=== PATIENT | male | born 1960 | race Caucasian/White ===

== ENCOUNTER 2024-05-27 02:20 | Emergency (ER) | payer OTHER, SELFPAY ==
--- NOTE | ~2024-05-27 | XR_ITS ---
CLINICAL HISTORY: cough for one month 1 view chest x-ray. Comparison: None Findings: No consolidation, pneumothorax, or effusion. Heart size normal. Impression: 1. No acute cardiopulmonary process. No focal pulmonary consolidation. This document has been electronically signed by: John Hawkins MD on 05/27/2024 03:22:27
[2024-05-27 02:22] VITALS: BP 154/104; PULSE 65; RESP 20; TEMP 36.4; O2SAT 96; BMI 29.9
--- NOTE | 2024-05-27 02:27 | ECG_ITS ---
Test Reason : SOB Blood Pressure : */* mmHG Vent. Rate : 59 BPM Atrial Rate : 59 BPM P-R Int : 212 ms QRS Dur : 82 ms QT Int : 440 ms P-R-T Axes : -19 23 47 degrees QTcB Int : 435 ms Sinus bradycardia with 1st degree A-V block Septal infarct , age undetermined Abnormal ECG When compared with ECG of 01-Sep-2002 00:48, VT interval has increased Vent. rate has decreased by 46 bpm Septal infarct is now Present Referred By: Generic ED Physician Electronically Signed By: Lencho Xavier
[2024-05-27 02:42] LABS: MANUAL DIFF FLAG NO
[2024-05-27 02:44] LABS: Basophils Absolute Auto 0.1 X10*3/uL (0.0-0.2); Basophils Percent Auto 0.8 % (0-2); Eosinophils Absolute Auto 0.2 X10*3/uL (0.0-0.4); Hematocrit 40.1 % (42.0-52.0); Hemoglobin 14.3 g/dl (14.0-18.0); Imm Gran Abs Auto 0.02 X10*3/uL (0.00-0.03); Imm Gran Pct Auto 0.3 % (0.0-0.4); Lymphocytes Absolute Auto 1.7 X10*3/uL (1.2-4.9); Lymphocytes Percent Auto 25.6 % (20-40); Mean Corpuscular HGB Conc 35.7 g/dl (31.0-36.0); Mean Corpuscular Hemoglobin 29.4 pg (27.0-33.0); Mean Corpuscular Volume 82.3 fL (80.0-98.0); Mean Platelet Volume 11.7 fL (9.4-12.4); Monocytes Absolute Auto 0.5 X10*3/uL (0.1-1.2); Monocytes Percent Auto 7.5 % (2-11); Neutrophils Absolute Auto 4.2 x10*3/uL (2.0-8.3); Neutrophils Percent Auto 62.8 % (45-73); Platelet Count 189 X10*3/uL (160-400); Red Blood Count 4.87 X10*6/uL (4.60-5.80); Red Cell Distribution Width 12.3 % (11.0-16.0); White Blood Count 6.6 X10*3/uL (4.8-10.8)
[2024-05-27 02:58] LABS: Anion Gap 12 (12-20); Blood Urea Nitrogen 13 mg/dL (9-16); Carbon Dioxide 27 mmol/L (22-29); Chloride 102 mmol/L (96-108); Creatinine Clr Calc Pharmacy 105.9; Estimated Glomerular Filt Rate > 60; Glucose Random 290 mg/dL (60-115); Potassium 3.9 mmol/L (3.3-5.1); Sodium 137 mmol/L (135-145)
[2024-05-27 03:07] LABS: Troponin-I High Sensitivity < 2.7 ng/L (<3.5-35.0)
--- NOTE | 2024-05-27 03:08 | ED.GENADULT ---
HPI - General Adult General Chief complaint: General Medical Stated complaint: diff breathing Time Seen by Provider: 05/27/24 03:00 Source: patient Mode of arrival: ambulatory Limitations: no limitations History of Present Illness ED Provider: DR. Hicks HPI narrative: 64-year-old male came in for evaluation of shortness of breath, cough for the past month with exposure to a multiple family member in the family. Patient feels generalized weakness, shortness of breath, constant dizziness when he changes position from sitting to standing, persistent coughing with clear sputum. Only use edible marijuana, no history of cigarette smoking, no history of lung disease. Related Data Previous Rx's ?Medication ?Instructions ?Recorded guaifenesin 200 mg/5 mL oral liquid 200 mg (5 mL) PO Q4H PRN cough 05/27/24 #118 mL metformin 500 mg tablet 500 mg PO BID #30 tabs 05/27/24 Allergies Allergy/AdvReac Type Severity Reaction Status Date / Time No Known Allergies Allergy Verified 05/27/24 02:25 Review of Systems Review of Systems: All other systems are reviewed and are negative Constitutional: Reports as per HPI and Reports no additional constitutional complaints Eyes: Reports as per HPI and Reports no additional eye complaints Reports system reviewed and no additional complaints, except as documented Cardiovascular: Reports as per HPI and Reports no additional cardiovascular complaints Respiratory: Reports as per HPI and Reports no additional respiratory complaints Gastrointestinal: Reports as per HPI and Reports no additional gastrointestinal complaints Genitourinary: Reports no additional female genitourinary complaints Musculoskeletal: Reports no additional musculoskeletal complaints Skin/Breast: Reports system reviewed and no additional complaints, except as docu Psychiatric: Reports no additional psychiatric complaints Endocrine: Reports no additional endocrine complaints Hematologic/Lymphatic: Reports no additional hematologic/lymphatic complaints Allergic/Immunologic: Reports no additional allergic/immunologic complaints Reports system reviewed and no additional complaints, except as documented and Reports Abnormal speech present [facility] Social History Social History Advance Directives: No Advance Directives Information Provided: Yes Do you have a plan to hurt others: No Plan Physical Exam ED Vital Signs: Vital Signs - 24 hr 05/27/24 02:22 05/27/24 03:51 05/27/24 04:17 Temperature 97.5 F Pulse Rate 65 66 56 Respiratory Rate 20 Blood Pressure 154/104 H 152/66 H 150/51 H Pulse Oximetry 96 Oxygen Delivery Method Room Air 05/27/24 04:18 Temperature Pulse Rate 43 L Respiratory Rate Blood Pressure 144/58 H Pulse Oximetry Oxygen Delivery Method BMI result Body Mass Index 29.9 Vital signs have been reviewed and appear to be correct. Blood pressure elevated. Heart rate normal. Respiratory rate normal. Temperature normal. Oxygen saturation normal. Appearance: Alert. Oriented X3. No acute distress. Head: Normal external exam. Normocephalic. Atraumatic. No Solis signs noted. No raccoon eyes noted Eyes: PERRLA. EOMI. Conjunctiva and sclera normal. Eyelids normal. ENT: TM's Normal. Pharynx normal. Uvula midline. Moist mucous membranes. No trismus noted. No drooling noted. No muffled voice noted. Neck: Normal inspection. Neck supple. FROM. No adenopathy. Thyroid Normal. No meningeal signs. No neck mass noted. CVS: Normal heart rate and rhythm. Heart sound normal. No murmurs noted. Pulses normal throughout. Respiratory: No respiratory distress. Painless inspiration. Breath sounds normal. No wheezes/rales/rhonchi noted. Chest nontender. No accessory muscle usage noted or decreased air movement noted. Abdomen: Soft and nontender. Bowel sounds normal in all 4 quadrants. No distention noted. No organomegaly noted. No visible injury noted. Back: No CVA tenderness. Full range of motion noted. Skin: Skin warm and dry. Normal skin color. Normal skin turgor. No rashes/lesions/lacerations noted. Extremities: No lower extremity edema. Extremities exhibit normal range of motion. Extremities nontender. Neuro: Oriented X 3. Cranial nerve exam: II-XII are grossly intact No motor deficit. No sensory deficit. Reflexes normal. Course Reevaluation(s) Reevaluation #1: 64-year-old male came in with history of anxiety controlled with Klonopin, patient came in with shortness of breath and coughing, physical exam is unremarkable patient was given 1 mg of Ativan and coughing syrup, with a complete relief of his symptoms, patient now is asymptomatic, feels better. Unremarkable workup except for elevation of BS, patient is not known to take diabetic medication stated that his PCP is working him up 2 confirmed diagnosis of diabetes. Will start the patient on metformin until sees his PCP. Time: 05:53 Medications Administered Discontinued Medications Generic Name Dose Route Start Last Admin Trade Name Kylie PRN Reason Stop Dose Admin Lorazepam 1 mg 05/27/24 03:15 05/27/24 03:46 Lorazepam 1 Mg Tablet PO 05/27/24 03:16 1 mg ONCE ONE Administration Prednisone 50 mg 05/27/24 03:09 05/27/24 03:46 Prednisone 10 Mg Tablet PO 05/27/24 03:10 50 mg ONCE ONE Administration Medical Decision Making Differential Diagnosis Differential Diagnoses: The differential diagnosis associated with the presentation includes ( Pneumonia, pneumothorax, pleural effusion, influenza ache, RSV, COVID-19 infection, bronchitis, ACS, electrolyte derangement, severe anemia.) Admission/Observation Consideration of admission/observation: Escalation of care including admission/observation considered Lab Data MDM Lab Attestation statement: I reviewed the patient's lab results. 05/27/24 02:37 05/27/24 02:37 Labs: Lab Results 05/27/24 05/27/24 Range/Units 02:37 05:06 WBC 6.6 (4.8-10.8) X10*3/uL RBC 4.87 (4.60-5.80) X10*6/uL Hgb 14.3 (14.0-18.0) g/dl Hct 40.1 L (42.0-52.0) % MCV 82.3 (80.0-98.0) fL MCH 29.4 (27.0-33.0) pg MCHC 35.7 (31.0-36.0) g/dl RDW 12.3 (11.0-16.0) % Plt Count 189 (160-400) X10*3/uL MPV 11.7 (9.4-12.4) fL Immature Gran % (Auto) 0.3 (0.0-0.4) % Neut % (Auto) 62.8 (45-73) % Lymph % (Auto) 25.6 (20-40) % [place] % (Auto) 7.5 (2-11) % Eos % (Auto) 3.0 (0-4) % Baso % (Auto) 0.8 (0-2) % Lymph # (Auto) 1.7 (1.2-4.9) X10*3/uL [place] # (Auto) 0.5 (0.1-1.2) X10*3/uL Eos # (Auto) 0.2 (0.0-0.4) X10*3/uL Baso # (Auto) 0.1 (0.0-0.2) X10*3/uL Abs Immat Gran (auto) 0.02 (0.00-0.03) X10*3/uL Absolute Neuts (auto) 4.2 (2.0-8.3) x10*3/uL Absolute Nucleated RBC 0.000 (0.0-0.012) X10*3/uL Nucleated RBC % (auto) 0.0 (0.0-0.2) /100WBC Sodium 137 (135-145) mmol/L Potassium 3.9 (3.3-5.1) mmol/L Chloride 102 (96-108) mmol/L Carbon Dioxide 27 (22-29) mmol/L Anion Gap 12 (12-20) BUN 13 (9-16) mg/dL Creatinine 0.86 (0.5-1.4) mg/dL Estim Creat Clear Calc 105.9 Estimated GFR > 60 Random Glucose 290 H (60-115) mg/dL Calcium 9.0 (8.4-10.2) mg/dL Troponin I High Sens < 2.7 (<3.5-35.0) ng/L Influenza Type A (PCR) NEGATIVE (Negative) Influenza Type B (PCR) NEGATIVE (Negative) RSV RNA Qual (PCR) NEGATIVE (Negative) SARS-CoV-2 RNA (RT-PCR) NEGATIVE (Negative) Independent Interpretation I performed an independent interpretation of an: Plain X-Ray ( Chest: No acute cardiopulmonary process.) Radiology Impression Discussion of test interpretation with radiology: I have reviewed the radiologist's reading. Discharge Plan Discharge Clinical Impression: Diabetes mellitus, new onset, Anxiety, Bronchitis Patient Disposition: Home, Self-Care Instructions: Type 2 Diabetes in Adults: New Diagnosis (ED) Prescriptions: New metformin 500 mg tablet 500 mg PO BID Qty: 30 0RF guaifenesin 200 mg/5 mL liquid 200 mg PO Q4H PRN (Reason: cough) Qty: 118 0RF Referrals: Abe Ochoa NP [Primary Care Provider] - Print Language: Scottish
[2024-05-27] MEDS: predniSONE 10 MG TABLET 50 MG PO (03:46)
[2024-05-27] MEDS: LORazepam 1 MG TABLET PO (03:46)
[2024-05-27 03:51] VITALS: BP 152/66; PULSE 66
[2024-05-27 04:17] VITALS: BP 150/51; PULSE 56
[2024-05-27 04:18] VITALS: BP 144/58; PULSE 43
--- NOTE | 2024-05-27 05:13 | MHC.EDTECH ---
attempted to get urine sample but pt refused to give urine sample
[2024-05-27 05:50] LABS: Influenza A PCR NEGATIVE (Negative); Influenza B PCR NEGATIVE (Negative); Resp Syncy Virus RNA Qual PCR NEGATIVE (Negative); SARS COV2 PCR INHOUSE NEGATIVE (Negative)
[2024-05-27] MEDS: guaiFEN/Codeine SF 200/20/10ML 10 ML LIQUID PO (06:05)
[2024-05-27 07:04] VITALS: BP 166/66; PULSE 50; RESP 16; TEMP 36.6; O2SAT 96
== END 2024-05-27 07:13 | disposition home or self-care (01) ==
PROVIDERS: Emergency Provider Emergency Medicine; PCP Nurse Practitioner Community Health
DX: J40 Bronchitis, not specified as acute or chronic (principal); R06.02 Shortness of breath; R05.9 Cough, unspecified; F41.9 Anxiety disorder, unspecified; R00.1 Bradycardia, unspecified; R94.31 Abnormal electrocardiogram [ECG] [EKG]; Z03.818 Encounter for observation for suspected exposure to other biological agents ruled out; Z79.899 Other long term (current) drug therapy
CPT/HCPCS: 0241U; 36415; 71045; 80048; 84484; 85025; 93005; 99284

== ENCOUNTER → 2024-05-27 02:27 | Outpatient (BNV) | payer BC, SELFPAY | PROVIDERS: Emergency Provider Emergency Medicine; Visit Provider Radiology Diagnostic Radiology | DX: R05.9 Cough, unspecified (principal) | CPT/HCPCS: 71045 ==

== ENCOUNTER → 2024-05-27 02:27 | Outpatient (BNV) | payer OTHER, SELFPAY | PROVIDERS: Emergency Provider Emergency Medicine; PCP Nurse Practitioner Community Health; Visit Provider Internal Medicine Cardiovascular Disease | DX: R06.02 Shortness of breath (principal); R00.1 Bradycardia, unspecified; R94.31 Abnormal electrocardiogram [ECG] [EKG] | CPT/HCPCS: 93010 ==

== ENCOUNTER 2024-12-31 20:11 | Emergency (ER) | payer OTHER, SELFPAY ==
--- NOTE | ~2024-12-31 | XR_ITS ---
CLINICAL HISTORY: chest pain 2 view chest x-ray Comparison: CR - XR CHEST 1V - 05/27/24 02:47 EST Findings: The lungs are clear. Heart size is normal. No acute fracture. IMPRESSION: 1. No acute findings. This document has been electronically signed by: Bird Hazel MD on 12/31/2024 21:32:35
--- NOTE | 2024-12-31 20:14 | ECG_ITS ---
Test Reason : cp Blood Pressure : */* mmHG Vent. Rate : 86 BPM Atrial Rate : 86 BPM P-R Int : 180 ms QRS Dur : 90 ms QT Int : 384 ms P-R-T Axes : 88 28 57 degrees QTcB Int : 459 ms Normal sinus rhythm Septal infarct (cited on or before 27-May-2024) Abnormal ECG When compared with ECG of 27-May-2024 02:31, [place] interval has decreased ST now depressed in Lateral leads Referred By: Timo Huddleston Electronically Signed By: RHYS MARQUEZ
--- NOTE | 2024-12-31 20:14 | ED_ITS ---
HPI - General Adult General Chief complaint: Chest Pain Stated complaint: sob/afib? Time Seen by Provider: 12/31/24 20:38 Source: patient Mode of arrival: ambulatory Limitations: no limitations History of Present Illness ED Provider: GRACIA VINCENT PA-C HPI narrative: 64 year old male with pmhx significant for atrial fibrillation on eliquis, HTN presents to the ED today for evaluation s/p two episodes of difficulty breathing. Admits to chronic cough productive of clear sputum. Reports an increase in sputum over the last 2 days to the point where he feels he can not properly expel the sputum and as a result, feels like he is choking on it. Admits this causes him to have an anxiety attack where he feels short of breath, begins to have chest tightness/pain. Had one of these episodes 2 days ago when he was choking on his sputum and another episode tonight, prompting him to come into the ED for evaluation. Reports increased swelling to b/l lower extremities x today. Admits to subjective fever/chills. No documented temperature. Admits to long standing history of anxiety, currently takes clonidine however feels this is not controlling his anxiety well. Reports cardiac ablation for afib 1-2 months ago, received ativan at that time and reports it helped with his anxiety. Denies hx CHF or COPD. Related Data Previous Rx's ?Medication ?Instructions ?Recorded guaifenesin 200 mg/5 mL oral liquid 200 mg (5 mL) PO Q 4H PRN cough 05/27/24 #118 mL metformin 500 mg tablet 500 mg PO BID #30 tabs 05/27 guaifenesin 200 mg tablet 200 mg PO Q4H PRN cough #30 tabs 01/01/25 lorazepam 0.5 mg tablet (Ativan) 0.5 mg PO DAILY PRN a nxiety #7 tabs 01/01/25 Allergies Allergy/AdvReac Type Severity Reaction Status Date / Time No Known Allergies Allergy Verified 12/31/24 20:28 Review of Systems 2 Review of Systems: Yes all other systems are reviewed and are negative ON LICENSE OF [facility] Past Medical History Attestation statement: The following information was validated with the patient. Source: old records reviewed and nursing notes reviewed Social History Social History Substance Use Type: Marijuana Advance Directives: No Advance Directives Information Provided: No Do you have a plan to hurt others: No Plan Physical Exam ED Vital Signs: Vital Signs - 24 hr 12/31/24 20:25 12/31/24 21:27 12/31/24 21:43 Temperature 97.9 F Pulse Rate 85 65 Respiratory Rate 22 H 20 18 Blood Pressure 178/84 H Pulse Oximetry 96 Oxygen Delivery Method Room Air 12/31/24 21:43 12/31/24 23:49 01/01/25 01:20 Temperature 98.6 F 98.3 F 98.1 F Pulse Rate 65 64 70 Respiratory Rate 18 20 18 Blood Pressure 164/65 H 157/66 H 158/69 H Pulse Oximetry 96 98 97 Oxygen Delivery Method Room Air Room Air Room Air 01/01/25 01:25 Temperature 98.1 F Pulse Rate 70 Respiratory Rate 18 Blood Pressure 158/69 H Pulse Oximetry 97 Oxygen Delivery Method Room Air BMI result Body Mass Index 30.7 hypertensive, tachypneic, not hypoxic General: very anxious appearing, intermittently tearful Skin: Warm, dry, intact. No rashes or lesions. Head: Normocephalic, atraumatic. EENT: Hearing is intact b/l. Conjunctiva clear. PERRLA. EOM intact. Moist mucous membranes.? Cardiac: Chest wall symmetric. RRR Lungs: Normal respiratory effort without accessory muscle use. congested cough. lungs clear, no crackles. Abdomen: Soft, non-tender, non-distended. No rebound tenderness or guarding. Positive BS x4. Back: No midline spinous or paraspinal tenderness. No step off deformity. Ext: 2+ pitting edema to b/l LEs. no overlying erythema. no calf tenderness b/l. Neuro: AOx3. Normal speech. Ambulating with steady gait. Course Course Course Narrative: Medical screening exam performed. Please refer to detailed history, exam, evaluation, and management by primary provider. Limited history at this time, patient's son reporting that the patient may be in AFib. He is complaining of shortness of breath. Stat EKG ordered. History of previous OR, currently complaining of chest pain and shortness of breath. Reevaluation(s) Reevaluation #1: CBC without leukocytosis or left shift. normocytic anemia, h&h above transfusion threshold. Chemistry showing hypokalemia to 3, hypomagnesemia to 1.5. Repletion ordered. No GILLIAN. Liver function WNL. BNP WNL. Troponin WNL x2. EKG without acute ischemic changes. No atrial fibrillation. Chest x-ray does not demonstrate pneumonia or pulmonary edema. > patient was treated with Ativan in the ED with improvement in symptoms. He was also given an albuterol treatment with improvement in cough/sputum production. Patient states he feels well, is relieved by work up results. > after discussion with patient, it appears that he has periods of coughing up his sputum and becomes anxious, concerned that he may choke to . I do not feel this is cardiac related. I feel like his anxiety needs to be treated. Will send Ativan PRN, advised to follow up with his primary care provider for further scripts. I will also be sending guaifenesin to his pharmacy as I feel he would benefit from an expectorant. His workup is otherwise reassuring. discussed case with my attending dr. garcia who agrees w/ plan. used shared decision-making with patient to determine disposition home. Patient has remained stable throughout ED visit today. Discussed worrisome signs and symptoms and when to return to the ED. All questions answered at this time. Patient is agreeable with disposition and stable for discharge. Medications Administered Discontinued Medications Generic Name Dose Route Start Last Admin Trade Name Freq PRN Reason Stop Dose Admin Albuterol Sulfate 5 mg/ 0 mg 12/31/24 21:25 12/31/24 21:28 Albuterol/Ipratropium 3 ml INHALE 12/31/24 21:26 7.5 each ONCE ONE Administration Potassium Chloride 10 meq in 100 mls @ 100 mls/hr 12/31/24 21:30 01/01/25 00:04 Potassium Chloride/H20 IV 12/31/24 23:29 Infused Q1H JUAN DANIEL Infusion Magnesium Sulfate 2 gm in 50 mls @ 150 mls/hr 12/31/24 21:29 01/01/25 00:04 Magnesium Sulfate/H2o IV 12/31/24 21:48 Infused ONCE ONE Infusion Lorazepam 0.5 mg 12/31/24 21:08 12/31/24 21:53 Lorazepam 0.5 Mg Tablet PO 12/31/24 21:09 0.5 mg ONCE ONE Administration Potassium Chloride 40 meq 12/31/24 21:18 12/31/24 21:55 Potassium Chloride Packet 20 Meq Packet PO 12/31/24 21:19 40 meq ONCE ONE Administration Medical Decision Making Medical Decision Making [facility] Narrative: 64 year old male with pmhx significant for atrial fibrilation on eliquis, HTN presents to the ED today for evaluation s/p two episodes of difficulty breathing. Patient is hypertensive, vitals are otherwise WNL. Not hypoxic or tachycardic. Extremely anxious appearing on arrival, intermittently tearful. Congested cough noting however no respiratory distress, no tripoding. Lungs diminished but clear throughout. Differential diagnosis includes viral syndrome, bronchitis, pneumonia, anemia, electrolyte abnormality, anxiety Plan for labs, ekg, cxr, viral swabs, ed bronch protocol, re-evaluation. Differential Diagnosis Differential Diagnoses: The differential diagnosis associated with the presentation includes as above Admission/Observation not indicated. Lab Data [facility] Lab Attestation statement: I reviewed the patient's lab results. as above. 12/31/24 20:22 12/31/24 20:22 Labs: Lab Results 12/31/24 12/31/24 12/31/24 Range/Units 20:22 22:20 22:53 WBC 9.4 (4.8-10.8) X10*3/uL RBC 4.43 L (4.60-5.80) X10*6/uL Hgb 12.8 L (14.0-18.0) g/dl Hct 35.6 L (42.0-52.0) % MCV 80.4 (80.0-98.0) fL MCH 28.9 (27.0-33.0) pg MCHC 36.0 (31.0-36.0) g/dl RDW 12.9 (11.0-16.0) % Plt Count 195 (160-400) X10*3/uL MPV 12.1 (9.4-12.4) fL Immature Gran % (Auto) 0.2 (0.0-0.4) % Neut % (Auto) 66.4 (45-73) % Lymph % (Auto) 25.0 (20-40) % [place] % (Auto) 6.8 (2-11) % Eos % (Auto) 1.2 (0-4) % Baso % (Auto) 0.4 (0-2) % Lymph # (Auto) 2.4 (1.2-4.9) X10*3/uL [place] # (Auto) 0.6 (0.1-1.2) X10*3/uL Eos # (Auto) 0.1 (0.0-0.4) X10*3/uL Baso # (Auto) 0.0 (0.0-0.2) X10*3/uL Abs Immat Gran (auto) 0.02 (0.00-0.03) X10*3/uL Absolute Neuts (auto) 6.3 (2.0-8.3) x10*3/uL Absolute Nucleated RBC 0.000 (0.0-0.012) X10*3/uL Nucleated RBC % (auto) 0.0 (0.0-0.2) /100WBC Sodium 141 (135-145) mmol/L Potassium 3.0 L D (3.3-5.1) mmol/L Chloride 102 (96-108) mmol/L Carbon Dioxide 27 (22-29) mmol/L Anion Gap 15 (12-20) BUN 13 (9-16) mg/dL Creatinine 0.78 (0.5-1.4) mg/dL Estim Creat Clear Calc 114.7 Estimated GFR > 60 Random Glucose 209 H (60-115) mg/dL Calcium 9.4 (8.4-10.2) mg/dL Magnesium 1.5 L (1.6-2.6) mg/dL Total Bilirubin 0.6 (0.0-1.0) mg/dL AST 19 (5-37) U/L ALT 11 (0-40) U/L Alkaline Phosphatase 102 (39-117) U/L Troponin I High Sens 4.8 D 10.3 D (<3.5-35.0) ng/L NT-Pro-B Natriuret Pep 188.9 (<300) pg/mL Total Protein 7.6 (6.5-8.0) g/dL Albumin 4.5 (3.5-5.0) g/dL COVID-19 (GERALD) Negative (Negative) COVID-19 Clin Com See Note Influenza Type A (ANDERSON) Negative (Negative) Influenza Type B (ANDERSON) Negative (Negative) Influenza A & B Note See Note Independent Interpretation I performed an independent interpretation of an: EKG and Plain X-Ray Interpretation: ekg showing NSR, no acute ischemic changes or st elevations chest xr without infiltrate or consolidation Radiology Impression Discussion of test interpretation with radiology: I have reviewed the radiologist's reading. Radiologist Impression: Procedure(s): XR chest 2V Accession Number(s): [id number] cc: Abe Ochoa [employer] MACHINE OPERATOR; Timo Huddleston~ Reason for Exam: chest pain CLINICAL HISTORY: chest pain 2 view chest x-ray Comparison: CR - XR CHEST 1V - 05/27/24 02:47 EST Findings: The lungs are clear. Heart size is normal. No acute fracture. IMPRESSION: 1. No acute findings. This document has been electronically signed by: Bird Hazel MD on 12/31/2024 21:32:35 External Record Review External record reviewed: Inpatient record Prescription Management I considered prescription management with: Other (Guaifenesin, Ativan) Chronic Conditions Patient?s care impacted by: Other (afib) Social Determinants Patient?s care significantly limited by Social Determinants of Health including: Other Social Determinant of Health Critical Care Time Critical Care Time Critical Care Time: No Discharge Plan Discharge Clinical Impression: Chronic cough, Anxiety Patient Disposition: Home, Self-Care Instructions: Anxiety (ED) Additional Instructions: You were evaluated in the ED today for 2 episodes of difficulty breathing. You appeared to be having difficulty expelling your secretions, creating anxiety around the situation. Your blood work today is reassuring. Your chest x-ray does not demonstrate pneumonia or fluid within your lungs. Your EKG is reassuring. Your cardiac enzymes are normal. You tested negative for COVID and flu. You report improvement in symptoms with medications today. I am sending you home with a couple of tablets of Ativan for breakthrough anxiety. Follow up with your PCP for further scripts. I am sending a cough medicine to help expel your secretions. Follow up with outpatient providers as needed. Return with any new or worsening symptoms. In the case of an emergency call 911. Prescriptions: New guaifenesin 200 mg tablet 200 mg PO Q4H PRN (Reason: cough) Qty: 30 0RF lorazepam [Ativan] 0.5 mg tablet 0.5 mg PO DAILY PRN (Reason: anxiety) Qty: 7 0RF No Action metformin 500 mg tablet 500 mg PO BID Qty: 30 0RF guaifenesin 200 mg/5 mL liquid 200 mg PO Q4H PRN (Reason: cough) Qty: 118 0RF Referrals: Abe Ochoa NP [Primary Care Provider, Internal Medicine] Interventions: ED Discharge Assessment Last Done: 01/01/25 01:25 Discharge Date/Time: 01/01/25 01:26 Print Language: Lao
[2024-12-31 20:25] VITALS: BP 178/84; PULSE 85; RESP 22; TEMP 36.6; O2SAT 96; BMI 30.7
[2024-12-31 20:37] LABS: MANUAL DIFF FLAG NO
[2024-12-31 20:38] LABS: Hematocrit 35.6 % (42.0-52.0); Hemoglobin 12.8 g/dl (14.0-18.0); Imm Gran Abs Auto 0.02 X10*3/uL (0.00-0.03); Imm Gran Pct Auto 0.2 % (0.0-0.4); Lymphocytes Absolute Auto 2.4 X10*3/uL (1.2-4.9); Mean Corpuscular HGB Conc 36.0 g/dl (31.0-36.0); Mean Corpuscular Hemoglobin 28.9 pg (27.0-33.0); Mean Corpuscular Volume 80.4 fL (80.0-98.0); NRBC Abs Auto 0.000 X10*3/uL (0.0-0.012); NRBC Pct Auto 0.0 /100WBC (0.0-0.2); Platelet Count 195 X10*3/uL (160-400); Red Blood Count 4.43 X10*6/uL (4.60-5.80); White Blood Count 9.4 X10*3/uL (4.8-10.8)
--- OUTSIDE RECORDS SUMMARY | 2024-12-31 20:38 | XMS_ITS | Encounter Summary ---
Author Organization [employer] Address [address] [place] [address] [address] [place] [address] Care Team Providers Care Physical Education Teacher Name Role Phone Abe Ochoa NP Primary Care Provider + [phone] Reason for Visit * Reason Comments Med Refill Encounter Details Date Type Department Care Team ([facility] Contact Info) Description 12/27/2024 Refill [facility] MEDICAL [address] [place] [address] Abe Ochoa NP [address] [place] [address] Neck pain; Chronic bilateral low back pain with left-sided sciatica Social History Tobacco Use Types Packs/Day Years Used Date Smoking Tobacco: Former Cigarettes Passive Smoke Exposure: Past Smokeless Tobacco: Never Alcohol Use Standard Drinks/Week Comments Never 0 (1 standard drink = 0.6 oz pur e alcohol) Alcohol Answer Date Recorded How often do you have a drink containing alcohol ? 0 12/14/2023 How many drinks containing a lcohol do you have on a typical day when you are drinking? 0 12/14/2023 How often do you have six or more drinks on one occasion? 0 12/14/2023 Depression Answer Date Recorded Patient Health Questionnaire-9 Score 20 05/12/2024 Patient Health Questionnaire-9 Score 20 05/12/2024 Last PHQ-9: Questionnaire Data Not on file 0 05/12/2024 Housing Stability Answer Date Recorded What is your housing situation today? I have yossi garcia 12/14/[address] you li ve. Do you have problems with any of the following? None of the above 12/14/2023 Food Insecurity Answer Date Recorded Within the past 12 months, y ou worried that your food would run out before you got money to buy more: Never True 12/14/2023 Within the past 12 months,th e food you bought just didn't last and you didn't have enough money to get more: Never True Transportation Answer Date Recorded In the past 12 months, has l ack of transportation kept you from medical appts, meetings, work or from getting things needed for daily living? No 12/14/2023 Intimate Partner Violence Answer Date R ecorded Within the last year, have y ou been afraid of your partner or ex-partner? 2 12/14/2023 Within the last year, have y ou been humiliated or emotionally abused in other ways by your partner or ex-partner? 2 Within the last year, have y ou been kicked, hit, slapped, or otherwise physically hurt by your partner or ex-partner? 2 12/14/2023 Within the last year, have y ou been raped or forced to have any kind of sexual activity by your partner or ex-partner? 2 12/14/2023 Utilities Answer Date Recorded In the past 12 months, has t he electric, gas, oil or water company threatened to shut off services in your home? No 12/14/2023 Depression Answer Date Recorded Patient Health Questionnaire-2 Score 6 05/12/2024 Internet Access Answer Date Recorded Internet Access Q1 Yes 12/14/2023 Internet Access Q2 Not on file 12/14/2023 Education Answer Date Recorded What is the highest level of school you have completed or the highest degree you have received? Some college, no degree 12/14/2023 Sex and Gender Information Value Date Recorded Sex Assigned at Male 03/04/2022 9:43 AM EST Legal Sex Male 8:39 PM EDT Gender Identity Male 03/04/2022 9:43 AM EST Sexual Orientation Choose not to disclose 2022 7:57 AM EDT Occupation Industry Job Start Date Job End Date Retired Not on file Not on file Not on file documented as of this encounter Miscellaneous Notes * Telephone Encounter - Cristy Lowry MA - 12/27/2024 4:14 PM EDT [employer] Last fill Date: 11/24/24 [employer] sold Date: 11/28/24 Last OV: 06/30/24 Next OV: 01/31/25 Last UTOX: 10/22/21 CSA Date: N/A DNF Date: due documented in this encounter Plan of Treatment Upcoming Encounters Date Type Department Care Team (Late st Contact Info) Description 01/31/2025 11:30 AM EST Office Visit [facility] MEDICAL 70 [facility] [place] [address] Abe Ochoa NP 70 [place] [address] documented as of this encounter Visit Diagnoses Diagnosis Neck pain Cervicalgia Chronic bilateral low back pain with left-sided sciatica documented in this encounter Additional Health Concerns Assessment Noted Time PHQ-9 Depression Total Score: 20 025 12:28 PM EST documented as of this encounter Care Teams Physical Education Teacher Relationship Specialty Start Date End Date Abe Ochoa NP 70 [place] [address] PCP - General Internal Medicine 02/27/22 documented as of this encounter
--- OUTSIDE RECORDS SUMMARY | 2024-12-31 20:38 | XMS_ITS | Encounter Summary ---
Author Organization [employer] Address [address] [place] [address] [address] [address] Care Team Providers Care Dry Kiln Burner Name Role Phone Abe Ochoa NP Primary Care Provider + [phone] Reason for Visit * Reason Comments Med Refill Encounter Details Date Type Department Care Team ([facility] Contact Info) Description 04/11/2022 Refill [facility] MEDICAL [address] [place] [address] Abe Ochoa NP [address] [place] [address] Benign prostatic hyperplasia with urinary hesitancy Social History Tobacco Use Types Packs/Day Years Used Date Smoking Tobacco: Never Smokeless Tobacco: Never Sex and Gender Information Value Date Recorded Sex Assigned at Male 03/04/2022 9:43 AM EST Legal Sex Male 8:39 PM EDT Gender Identity Male 03/04/2022 9:43 AM EST Sexual Orientation Choose not to disclose 2022 7:57 AM EDT documented as of this encounter Plan of Treatment Upcoming Encounters Date Type Department Care Team ([facility] Contact Info) Description 01/31/2025 11:30 AM EST [facility] Visit [facility] MEDICAL [address] [place] [address] Abe Ochoa NP [address] [place] [address] documented as of this encounter Visit Diagnoses Diagnosis Benign prostatic hyperplasia with urinary hesitancy documented in this encounter Care Teams Dry Kiln Burner Relationship Specialty Start Date End Date Abe Ochoa NP [address] [facility] [place] [address] PCP - General Internal Medicine 02/27/22 documented as of this encounter
--- OUTSIDE RECORDS SUMMARY | 2024-12-31 20:38 | XMS_ITS | Encounter Summary ---
Author Organization [employer] Address [address] [place] [address] 7 [place] [address] Care Team Providers Care Handle Attacher Name Role Phone Abe Ochoa NP Primary Care Provider + [phone] Reason for Visit * Reason Comments Med Refill Encounter Details Date Type Department Care Team ([facility] st Contact Info) Description 08/18/2022 Refill [facility] MED[facility] [address] [place] [address] Abe Ochoa NP [address] [place] [address] Social History Tobacco Use Types Packs/Day Years Used Date Smoking Tobacco: Never Smokeless Tobacco: Never Sex and Gender Information Value Date Recorded Sex Assigned at Male 03/04/2022 9:43 AM EST Legal Sex Male 8:39 PM EDT Gender Identity Male 03/04/2022 9:43 AM EST Sexual Orientation Choose not to disclose 2022 7:57 AM EDT documented as of this encounter Miscellaneous Notes * Telephone Encounter - Donaldo Paige - 08/21/2022 2:19 PM EDT LMOM for patient to call back and schedule appt * Telephone Encounter - Abe Ochoa NP - 08/19/2022 10:50 AM EDT Rx sent Please call pt. Encourage him to get his labs done and schedule an office visit with me within 6 weeks documented in this encounter Plan of Treatment Upcoming Encounters Date Type Department Care Team (Late st Contact Info) Description 01/31/2025 11:30 AM EST Office Visit [facility] [address] [place] [address] Abe Ochoa NP [address] [place] [address] documented as of this encounter Visit Diagnoses Not on filedocumented in this encounter Care Teams Handle Attacher Relationship Specialty Start Date End Date Abe Ochoa NP [address] [place] [address] PCP - General Internal Medicine 02/27/22 documented as of this encounter
--- OUTSIDE RECORDS SUMMARY | 2024-12-31 20:38 | XMS_ITS | Clinical Summary ---
Author Organization [employer] Address 75 [facility] 7t [place] [address] Care Team Providers Care Quality Assurance Inspector Name Role Phone Abe Ochoa NP Primary Care Provider Allergies No known active allergies Medications * This document contains information received from the source organization and may not represent a complete record from that organization. apixaban (Eliquis) 5 MG tablet as directed Orally twice daily Active aspirin 81 MG chewable tablet 1 tablet in the morning. Active cholecalciferol (Vitamin D-3) 25 MCG (1000 UT) capsule 1 capsule in the morning. Active cholestyramine (Questran) 4 g packet daily. 04/05/19 22 Active omega-3 (Fish Oil) 1000 MG capsule 1 capsule in the morning. Active omeprazole (PriLOSEC) [address] capsule TAKE 1 CAPSULE BY MOUTH 30 MINUTES BEFORE MORNING MEAL ONCE DAILY. for 90 Active naloxone (Narcan) 4 mg/0.1 mL nasal spray 11/26/19 22 Active tiZANidine (Zanaflex) 4 MG tabletIndication s:Chronic low back pain with bilateral sciatica, unspecified back pain laterality TAKE ONE TABLET BY MOUTH TWICE A DAY 60 tablet 1 07/03/19 23 Active triamcinolone (Kenalog) 0.1 % creamIndications :Dermatitis Apply topically 2 times daily. 45 g 10/24/19 23 Active sotalol (Betapace) 80 MG tablet Take 80 mg by mouth every 12 (twelve) hours. 05/17/19 24 Active dilTIAZem CD (Cardizem CD) 240 MG 24 hr capsule Take 240 mg by mouth in the morning. 05/27/19 24 Active acetaminophen (Tylenol) 500 MG tabletIndication s:Chronic bilateral low back pain with left-sided sciatica,Neck pain TAKE 2 TABLETS (1,000MG ) BY MOUTH EVERY 8 HOURS 180 tablet 3 07/03/19 24 Active diazePAM (Valium) 5 MG tablet 08/03/19 24 Active senna-docusate sodium (Senokot-S) 8.6-50 MG tabletIndication s:Constipation, unspecified constipation type Take 1 tablet by mouth Once per day. 90 tablet 3 12/14/19 24 Active psyllium (Metamucil Smooth Texture) 58.6 % powderIndication s:Constipation, unspecified constipation type Take 5.12 g (3 g of fiber) by mouth 2 times daily. 660 g 3 12/14/19 24 Active DULoxetine (Cymbalta) [address] capsuleIndicatio ns:Fibromyalgia TAKE ONE CAPSULE BY MOUTH ONCE DAILY 90 capsule 3 04/05/19 25 Active amLODIPine (Norvasc) 10 MG tablet TAKE ONE TABLET BY MOUTH EVERY DAY 90 tablet 3 04/12/19 25 Active finasteride (Proscar) 5 MG tabletIndication s:Benign prostatic hyperplasia with urinary hesitancy TAKE ONE TABLET BY MOUTH EVERY DAY 90 tablet 3 06/21/19 25 Active metFORMIN (Glucophage) 500 MG tabletIndication s:Controlled type 2 diabetes mellitus without complication, without long-term current use of insulin ([facility]) TAKE ONE TABLET BY MOUTH TWICE A DAY 180 tablet 1 07/29/19 25 Active levothyroxine (Synthroid, Levoxyl) 75 MCG tabletIndication s:Hypothyroidism , unspecified type TAKE ONE TABLET BY MOUTH EVERY DAY 90 tablet 1 09/20/19 25 Active tamsulosin (Flomax) 0.4 MG 24 hr capsuleIndicatio ns:Benign prostatic hyperplasia with lower urinary tract symptoms, symptom details unspecified TAKE TWO CAPSULES BY MOUTH EVERY DAY 180 capsule 3 09/23/19 25 Active cloNIDine (Catapres) 0.1 MG tabletIndication s:Primary hypertension TAKE ONE TABLET BY MOUTH THREE TIMES A DAY 90 tablet 3 11/08/19 25 Active buPROPion SR (Wellbutrin SR) 150 MG 12 hr tabletIndication s:Moderate episode of recurrent major depressive disorder (CMS/HCC) (HCC) TAKE ONE TABLET BY MOUTH EVERY MORNING 90 tablet 1 12/07/19 25 Active lisinopril 10 MG tabletIndication s:Controlled type 2 diabetes mellitus without complication, without long-term current use of insulin (HCC),Primary hypertension TAKE ONE TABLET BY MOUTH EVERY DAY 90 tablet 3 12/14/19 25 Active buprenorphine (Butrans) 20 MCG/HRIndication s:Neck pain,Chronic bilateral low back pain with left-sided sciatica PLACE ONE PATCH ON THE SKIN ONE TIME PER WEEK 4 patch 12/29/19 25 Active buPROPion SR (Wellbutrin SR) 150 MG 12 hr tabletIndication s:Moderate episode of recurrent major depressive disorder (CMS/HCC) (HCC) Take 1 tablet (150 mg) by mouth in the morning. 90 tablet 1 05/10/19 25 025 Discontinued lisinopril 10 MG tabletIndication s:Controlled type 2 diabetes mellitus without complication, without long-term current use of insulin (HCC),Primary hypertension TAKE ONE TABLET BY MOUTH EVERY DAY 90 tablet 08/27/19 25 025 Discontinued buprenorphine (Butrans) 20 MCG/HRIndication s:Neck pain,Chronic bilateral low back pain with left-sided sciatica Place 1 patch on the skin 1 (one) time per week. 4 patch 1 10/25/19 25 025 Discontinued Active Problems Problem Noted Date Diagnosed Date Unsteady gait 03/07/2024 History of fusion of cervical spine 02/17/2024 Chronic hoarseness 03/04/2022 Benign prostatic hyperplasia with lower urinary tract symptoms 02/13/2022 Assessment & Plan (03/04/2022 9:21 PM EST): Pt stable, sx fairly well controlled Central sleep apnea 02/13/2022 Assessment & Plan (03/04/2022 9:19 PM EST): Pt using CPAP with good effect Obstructive sleep apnea 02/13/2022 Controlled type 2 diabetes m ellitus without complication, without long-term current use of insulin 02/13/2022 Assessment & Plan (03/04/2022 9:22 PM EST): Will check labs Erectile dysfunction 02/13/2022 Fatty liver 02/13/2022 Gastroesophageal reflux disease without esophagi tis 02/13/2022 Gastroparesis 02/13/2022 History of cholecystectomy 02/13/2022 Hypertriglyceridemia 02/13/2022 Hypogonadism in male 02/13/2022 Hypothyroidism 02/13/2022 Assessment & Plan (03/04/2022 9:22 PM EST): On meds. Check labs Fibromyalgia 02/13/2022 Chronic low back pain 02/13/2022 Assessment & Plan (03/04/2022 9:22 PM EST): Pain mgmt as above Lumbago with sciatica, left side 02/13/2022 Lumbago with sciatica, right side 02/13/2022 Neck pain 02/13/2022 Assessment & Plan (03/04/2022 9:20 PM EST): Chronic neck pain with hx of spinal surgery. Doing much better off opioids. Will continue with APAP and muscle relaxer prn. Rx for NSAIDS to start when he is off anticoagulation. We will check with cardiology on that, as he is unclear on when he can do that. Major depressive disorder with current active ep isode 02/13/2022 Assessment & Plan (03/04/2022 9:23 PM EST): [facility] Memory impairment 02/13/2022 Overflow incontinence of urine 02/13/2022 Paroxysmal atrial fibrillation (CMS/HCC) 022 Overview (03/01/2022): 04/2020 Holter NSR; ECHO wnl; ETT wnl. Anticoagulated Assessment & Plan (03/04/2022 9:21 PM EST): Pt is anticoagulated and rate controlled. Will contact cardiology for plan now that he is two months post ablation. Peripheral polyneuropathy 02/13/2022 Post traumatic stress disorder (PTSD) 02/13/2022 Primary hypertension 02/13/2022 Assessment & Plan (03/04/2022 9:21 PM EST): Controlled today Resolved Problems Problem Noted Date Diagnosed Date Resolved Date Substance abuse (CMS/HCC) 02/13/20222 Encounters Date Type Department Care Team Description 12/27/2024 [facility] [address] [place] [address] Abe Ochoa NP Neck pain; Chronic bilateral low back pain with left-sided sciatica 12/13/[address] [address] Abe Ochoa NP Controlled type 2 diabetes mellitus without complication, without long-term current use of insulin ([facility]); Primary hypertension 12/06/2024 [facility] [address] [place] [address] Abe Ochoa NP Moderate episode of recurrent major depressive disorder ([facility]) (Primary Dx) 11/18/[address] [address] Abe Ochoa NP Hyperglycemia; Dizziness 11/05/2024 [facility] [address] [place] [address] [facility] Erica, [facility] Primary hypertension 10/26/2024 Patient Outreach [facility] Case Management [address] [place] [address] Shereen Contreras 10/25/2024 Patient Outreach [facility] Case Management [address] [place] [address] Sheron Cotton 10/24/[address] [address] Abe Ochoa NP Neck pain; Chronic bilateral low back pain with left-sided sciatica 10/07/[address] [address] Enedina Henderson MD Primary hypertension from Last 3 Months Immunizations Immunization Administration Dates Next Due Influenza Whole 01/11/2019, 2,12/04/2010,01/15,03/02/2008 Influenza injectable quadriv alent preservative free 01/08/2021 Influenza, IIV3, injectable 12/14/2023,1 ,01/15/2016,12/20,03/08/2014,12/07/2012 Moderna Covid-19 Vaccine 12+ 02/15/2021,07/17/19 21 Pneumococcal Conjugate PCV 20 06/30/2024 Pneumococcal Polysaccharide PPSV23 2000 Td (adult), unspecified 04/12/2019 Tdap 03/02/2008 Social History Tobacco Use Types Packs/Day Years Used Date Smoking Tobacco: Former Cigarettes Passive Smoke Exposure: Past Smokeless Tobacco: Never Tobacco Cessation:Counseling Given: Not Answered Alcohol Use Standard Drinks/Week Comments Never 0 [...] the past 12 months, has t he [employer], oil or water [employer] threatened to shut off services in your [...] file Not on file Not on file Last Filed Vital Signs Vital Sign Reading Time Taken Comments Blood Pressure 142/85 06/30/2024 1:49 PM EDT Pulse 60 06/30/2024 1:49 PM EDT Temperature 36.7 C (98 F) 06/30/2024 1:49 PM EDT Respiratory Rate 18 10/22/2020 4:06 PM EDT Oxygen Saturation 93% 12/14/2023 1:52 PM EDT Inhaled Oxygen Concentration - - Weight 94.3 kg (208 lb) 06/30/2024 1:49 PM EDT Height 180.3 cm (5' 11 ) 12/14/2023 1:52 PM EDT Body Mass Index 29.01 12/14/2023 1:52 PM EDT Plan of Treatment Upcoming Encounters Date Type Department Care Team (Late st Contact Info) Description 01/31/2025 11:30 AM EST Office Visit [facility] MEDICAL 70 [place] [address] Abe Ochoa NP [address] [place] [address] Health Maintenance Due Date Last Done Comments CT Colonography 1962 Colonoscopy 1962 Colorectal Cancer Screening 1962 FIT DNA/Cologuard 1962 FIT 1962 FOBT 1962 Sigmoidoscopy 1962 Disability Screening 1962 Diabetes: Foot Exam 1972 Eye Exam 1972 Alcohol/Substance Use Screening 1974 Hepatitis A Vaccines (1 of 2 - Risk 2-dose series) 1981 Zoster Vaccines (1 of 2) 2012 Hepatitis B Vaccines (1 of 3 - Risk 3-dose series) 2022 RSV Patients and Patients Aged 60 years or older (1 - Risk 60-74 years 1-dose series) 2022 Diabetes: Urine Protein Screening 06/29/2024 06/30/2023 Lipid Panel 06/29/2024 06/30/2023, 11/30, 11/09/2020 Diabetes: Hemoglobin A1C 09/29/2024 025, 12/14/2023, 06/15/2023, Additional history exists Depression Monitoring 11/09/2024 05/12/2024, 025 Influenza Vaccine (#1) 2024 , 02/02/2022, 01/08/2021, Additional history exists SDOH Screening 12/13/2024 12/14/2023 Tobacco Screening 12/13/2024 12/14/2023 DTaP/Tdap/Td Vaccines (3 - Td or Tdap) 04/12/2029 04/12/2019, 03/02/2008 HIV Screening Completed 12/27/2020 Hepatitis C Screening Completed 12/27/2020 COVID-19 Vaccine Completed 01/07/2024, 01/2023, 02/15/2021, Additional history exists Pneumococcal Vaccine: 50+ Years Completed 06/30/2024, 2000 HIB Vaccines Aged Out No longer eligi ble based on patient's age to complete this topic HPV Vaccines Aged Out No longer eligi ble based on patient's age to complete this topic IPV Vaccines Aged Out No longer eligi ble based on patient's age to complete this topic Meningococcal B Vaccine Aged Out No l onger eligible based on patient's age to complete this topic Meningococcal Vaccine Aged Out No xavier epifanio eligible based on patient's age to complete this topic RSV under 20 months Aged Out No longe r eligible based on patient's age to complete this topic Rotavirus Vaccines Aged Out No longer eligible based on patient's age to complete this topic Procedures Procedure Name Priority Date/Time Associated Diagnosis Comments POCT GLYCOSYLATED HEMOGLOBIN (HGB A1C) Routine 06/30/2024 1:55 PM EDT Controlled type 2 diabetes mellitus without complication, without long-term current use of insulin ([facility]) ALBUMIN/CREATININE RATIO, TIMED URINE Routine 06/30/2023 12:11 PM EDT Controlled type 2 diabetes mellitus without complication, without long-term current use of insulin ([facility]) LIPID PANEL, STANDARD Routine 06/30/2023 12:11 PM EDT Controlled type 2 diabetes mellitus without complication, without long-term current use of insulin ([facility]) HEPATITIS C ANTIBODY Routine 12/27/2020 HIV-1 ANTIBODY, EIA Routine 12/27/2020 from Last 3 Months or Most Recently Relevant to Health Maintenance Results * (ABNORMAL) POCT glycosylated hemoglobin (Hgb A1c) (06/30/2024 1:55 PM EDT) Hemoglobin A1C 7.1(A) 4.0 - 6.0 % Blood Capillary blood specimen / Unknown 06/30/2024 1:55 PM EDT Abe Ochoa NP POINT OF CARE TEST ENTER/LOS T ORDERABLES Final Result * (ABNORMAL) Microalbumin / creatinine, urine ratio (06/30/2023 12:11 PM EDT) Pathologist [facility] Creatinine, Random Urine 141.1 Not Estab. mg/dL [facility] 1 Albumin, Urine 46.1 Not Estab. ug/mL [facility] 1 Albumin/Creatini ne Ratio 33(H) 0 - 29 mg/g creat [facility] 1 Comment: Normal: 0 - 29 Moderately increased: 30 - 300 Severely increased: >300 Urine Urine specimen obtained by clean catch procedure / Unknown 06/30/2023 12:11 PM EDT 06/30/2023 Narrative [facility] 1 - 07/01/2023 4:06 PM EDT Performed at: - [facility] [id number] Har[employer] Brusher: Lynne Jackson MD, Phone: [phone] Abe Ochoa NP LAB URINE ORDERABLES Final R esult Performing Organization Address [facility] Co de Phone Number [facility] * (ABNORMAL) Lipid Panel, Standard (06/30/2023 12:11 PM EDT) Pathologist [facility] Cholesterol, Total 141 100 - 199 mg/dL [facility] 1 Triglycerides 257(H) 0 - 149 mg/dL [facility] 1 HDL Cholesterol 41 >39 mg/dL [facility] 1 VLDL Cholesterol Dionicio 41(H) 5 - 40 mg/dL [facility] 1 LDL Chol Calc (NIH) 59 0 - 99 mg/dL [facility] 1 Blood Venous blood specimen / Unknown 06/30/2023 12:11 PM EDT 06/30/2023 Narrative [facility] 1 - 07/01/2023 6:05 AM EDT Performed at: - [facility] [address] [id number] Har[employer] Brusher: Lynne Jackson MD, Phone: [phone] Abe Ochoa NEWS CONTENT SPECIALIST LAB BLOOD ORDERABLES Final R esult Performing Organization Address City/[facility]/ZIP Co de Phone Number [facility] 1 * Hepatitis C Ab (12/27/2020) [facility] Hepatitis C Antibody negative 12/27/2020 Historical Provider LAB BLOOD ORDERABLES Halle l Result * HIV-1 antibody, EIA (12/27/2020) External HIV-1 Antibody Negative Blood Venous blood specimen / Unknown Historical Provider LAB BLOOD ORDERABLES Halle l Result from Last 3 Months or Most Recently Relevant to Health Maintenance Insurance [facility] < [address] [place] [id number] Care Teams Quality Assurance Inspector Relationship Specialty Start Date End Date Abe Ochoa NP [address] [place] [id number] PCP - General Internal Medicine 02/27/22
--- OUTSIDE RECORDS SUMMARY | 2024-12-31 20:38 | XMS_ITS | Encounter Summary ---
Author Organization [employer] Address [address] [place] [address] 7[address] [place] [address] Care Team Providers Care Neon Sign Installer Name Role Phone Abe Ochoa NP Primary Care Provider + [phone] Reason for Visit * Reason Comments Med Refill Encounter Details Date Type Department Care Team ([facility] Contact Info) Description 05/29/2024 Refill [facility] MEDICAL [address] [place] [address] Abe Ochoa, ISABELA [address] [place] [address] Controlled type 2 diabetes mellitus without complication, without long-term current use of insulin ([facility]); Primary hypertension Social History Tobacco Use Types Packs/Day Years [...] encounter Miscellaneous Notes * Telephone Encounter - Rajni Trotter MD - 05/30/2024 8:47 AM EST Approving, but needs appt for additional refills. documented in this encounter Plan of Treatment Upcoming Encounters Date Type Department Care Team (Late st Contact Info) Description 01/31/2025 11:30 AM EST Office Visit [facility] MEDICAL [address] [place] [address] Abe Ochoa NP [address] [place] [address] documented as of this encounter Visit Diagnoses Diagnosis Controlled type 2 diabetes mellitus without complication, without long-term current use of insulin (HCC) Primary hypertension Unspecified essential hypertension documented in this encounter Additional Health Concerns Assessment Noted Time PHQ-9 Depression Total Score: 20 025 12:28 PM EST documented as of this encounter Care Teams Neon Sign Installer Relationship Specialty Start Date End Date Abe Ochoa NP [address] [place] [address] PCP - General Internal Medicine 02/27/22 documented as of this encounter
--- OUTSIDE RECORDS SUMMARY | 2024-12-31 20:38 | XMS_ITS | Encounter Summary ---
Author Organization [employer] Address [address] [facility] 7[address] [place] [address] Care Team Providers Care Operations Support Professionals Name Role Phone Abe Ochoa NP Primary Care Provider [phone] Reason for Visit * Reason Onset Date Comments Med Refill Needs appt 11/30/2023 Encounter Details Date Type Department Care Team (Late st Contact Info) Description 11/30/2023 Refill [facility] MEDICAL [address] [place] [address] Abe Ochoa, ISABELA [address] [place] [address] Primary hypertension Social History Tobacco Use Types Packs/Day Years Used Date Smoking Tobacco: Never Smokeless Tobacco: Never Alcohol Use Standard Drinks/Week Comments Never 0 (1 standard drink = 0.6 oz pur e alcohol) Sex and Gender Information Value Date Recorded Sex Assigned at Male 03/04/2022 9:43 AM EST Legal Sex Male 8:39 PM EDT Gender Identity Male 03/04/2022 9:43 AM EST Sexual Orientation Choose not to disclose 2022 7:57 AM EDT documented as of this encounter Miscellaneous Notes * Telephone Encounter - Bita Mattson - 12/03/2023 2:50 PM EDT LMOM 12/03/23 * Telephone Encounter - Bita Mattson - 12/01/2023 9:02 AM EDT LMOM 12/01/23 * Telephone Encounter - Abe Ochoa NP - 12/01/2023 8:40 AM EDT Rx sent. Pt needs OV30 with me within 8 weeks documented in this encounter Plan of Treatment Upcoming Encounters Date Type Department Care Team (Late st Contact Info) Description 01/31/2025 11:30 AM EST Office Visit [facility] MEDICAL [address] [place] [address] Abe Ochoa NP [address] [place] [address] documented as of this encounter Visit Diagnoses Diagnosis Primary hypertension Unspecified essential hypertension documented in this encounter Care Teams Operations Support Professionals Relationship Specialty Start Date End Date Abe Ochoa NP [address] [place] [address] PCP - General Internal Medicine 02/27/22 documented as of this encounter
--- OUTSIDE RECORDS SUMMARY | 2024-12-31 20:38 | XMS_ITS | Encounter Summary ---
Author Organization [employer] Address [address] [facility] 7t [place] [address] Care Team Providers Care Guide Dog Instructor Name Role Phone Abe Ochoa NP Primary Care Provider + [phone] Encounter Details Date Type Department Care Team ([facility] Contact Info) Description 10/26/2024 Patient Outreach [facility] Case Management [address] [place], [place] [id number] Shereen Contreras Social History Tobacco Use Types Packs/Day Years [...] your housing situation today? I have yossi radha 12/14/[address] you li [...] on file documented as of this encounter Plan of Treatment Upcoming Encounters Date Type Department Care Team (Late st Contact Info) Description 01/31/2025 11:30 AM EST Office Visit [facility] MEDICAL [address] [place] [address] Abe Ochoa NP [address] [place] [address] documented as of this encounter Visit Diagnoses Not on filedocumented in this encounter Additional Health Concerns Assessment Noted Time PHQ-9 Depression Total Score: 20 025 12:28 PM EST documented as of this encounter Care Teams Guide Dog Instructor Relationship Specialty Start Date End Date Abe Ochoa NP [address] [place] [address] PCP - General Internal Medicine 02/27/22 documented as of this encounter
--- OUTSIDE RECORDS SUMMARY | 2024-12-31 20:38 | XMS_ITS | Encounter Summary ---
Author Organization [employer] Address [address] [place] [address] 7[address] [place] [address] Care Team Providers Care Cured Meats Supervisor Name Role Phone Abe Ochoa NP Primary Care Provider [phone] Reason for Visit * Reason Comments Med Refill Encounter Details Date Type Department Care Team (Late Contact Info) Description 06/12/2022 Refill [facility] MED[facility] [address] [place] [address] Abe Ochoa NP [address] [place] [address] Neck pain; Chronic bilateral low back pain [...] encounter Miscellaneous Notes * Telephone Encounter - Abe Ochoa NP - 06/12/2022 9:53 AM EDT I have denied both of these. I sent an Rx for APAP on 06/09/22. Naproxen is contraindicated. documented in this encounter Plan of Treatment Upcoming Encounters Date Type Department Care Team ([facility] Contact Info) Description 01/31/2025 11:30 AM EST Office Visit [facility] MED[facility] [address] [facility] [place] [address] Abe Ochoa NP [address] [place] [address] documented as of this encounter Visit Diagnoses Diagnosis Neck pain Cervicalgia Chronic bilateral low back pain with left-sided sciatica documented in this encounter Care Teams Cured Meats Supervisor Relationship Specialty Start Date End Date Abe Ochoa NP [address] [place] [address] PCP - General Internal Medicine 02/27/22 documented as of this encounter
--- OUTSIDE RECORDS SUMMARY | 2024-12-31 20:38 | XMS_ITS | Encounter Summary ---
Author Organization [employer] Address [address] [place] [address] 7 [place] [address] Care Team Providers Care Shoe Repairer Name Role Phone Abe Ochoa NP Primary Care Provider + [phone] Reason for Visit * Reason Comments Med Refill Encounter Details Date Type Department Care Team (Late Contact Info) Description 09/28/2022 Refill [facility] MEDICAL [address] [place] [address] Enedina Henderson MD [address] [place] [address] Benign prostatic hyperplasia with urinary hesitancy Social [...] Telephone Encounter - Abe Ochoa NP - 09/29/2022 10:14 AM EDT Rx sent. Needs OV30 with me within two months documented in this encounter Plan of Treatment Upcoming Encounters Date Type Department Care Team ([facility] Contact Info) Description 01/31/2025 11:30 AM EST Office Visit [facility] MEDICAL [address] [place] [address] Abe Ochoa NP [address] [place] [address] documented as of this encounter Visit Diagnoses Diagnosis Benign prostatic hyperplasia with urinary hesitancy documented in this encounter Care Teams Shoe Repairer Relationship Specialty Start Date End Date Abe Ochoa NP [address] [place] [address] PCP - General Internal Medicine 02/27/22 documented as of this encounter
[2024-12-31 20:53] LABS: Alanine Aminotransferase 11 U/L (0-40); Albumin Level 4.5 g/dL (3.5-5.0); Alkaline Phosphatase 102 U/L (39-117); Anion Gap 15 (12-20); Aspartate Amino Transferase 19 U/L (5-37); Blood Urea Nitrogen 13 mg/dL (9-16); Calcium 9.4 mg/dL (8.4-10.2); Carbon Dioxide 27 mmol/L (22-29); Chloride 102 mmol/L (96-108); Creatinine Clr Calc Pharmacy 114.7; Estimated Glomerular Filt Rate > 60; Potassium 3.0 mmol/L (3.3-5.1); Sodium 141 mmol/L (135-145); Total Protein 7.6 g/dL (6.5-8.0)
[2024-12-31 21:00] LABS: Troponin-I High Sensitivity 4.8 ng/L (<3.5-35.0)
[2024-12-31 21:06] LABS: NT Pro B Type Natriuretic Pept 188.9 pg/mL (<300)
[2024-12-31 21:27] VITALS: PULSE 65; RESP 20; O2SAT 96
[2024-12-31 21:27] LABS: Magnesium 1.5 mg/dL (1.6-2.6)
[2024-12-31] MEDS: Albuterol Sulfate 5 MG, Albuterol/Iprat 2.5/0.5MG 3 ML 3 ML INHALE (21:28)
[2024-12-31 21:43] VITALS: BP 164/65; PULSE 65; RESP 18; TEMP 37; O2SAT 96
[2024-12-31] MEDS: Magnesium Sulfate/H2O 2 GM/50 ML PIGGYBACK IV (21:55)
[2024-12-31] MEDS: Potassium Chloride Packet 20 MEQ PACKET 40 MEQ PO (21:55)
[2024-12-31] MEDS: Potassium Chloride/H20 10 MEQ/100 ML PIGGYBACK 100 MEQ IV ×2 (21:57→23:02)
[2024-12-31 22:40] LABS: COVID-19 Test Negative (Negative); IDNOW Serial# 55D5AD1C
[2024-12-31 22:41] LABS: IDNOW Serial# 58CA691E; Influenza B2 Negative (Negative)
[2024-12-31 23:20] LABS: Troponin-I High Sensitivity 10.3 ng/L (<3.5-35.0)
[2024-12-31 23:49] VITALS: BP 157/66; PULSE 64; RESP 20; TEMP 36.8; O2SAT 98
[2025-01-01 01:20] VITALS: BP 158/69; PULSE 70; RESP 18; TEMP 36.7; O2SAT 97
[2025-01-01 01:25] VITALS: BP 158/69; PULSE 70; RESP 18; TEMP 36.7; O2SAT 97
--- NOTE | 2025-01-01 01:25 | PC.NURSE ---
reviewed discharge instructions with pt. pt verbalized under standing, no sign of distress upon discharge.
== END 2025-01-01 01:26 | disposition home or self-care (01) ==
PROVIDERS: Physician Assistant; Physician Assistant Medical; Emergency Provider Emergency Medicine; PCP Nurse Practitioner Community Health
DX: R07.89 Other chest pain (principal); R06.02 Shortness of breath; I48.91 Unspecified atrial fibrillation; R05.9 Cough, unspecified; F41.9 Anxiety disorder, unspecified; Z79.01 Long term (current) use of anticoagulants; Z79.899 Other long term (current) drug therapy; Z11.52 Encounter for screening for COVID-19
CPT/HCPCS: 36415; 71046; 80053; 83735; 83880; 84484; 85025; 87502; 87635; 93005; 94640; 96365; 96367; 96375; 99284; 99285; J3475; J3480

== ENCOUNTER → 2024-12-31 20:14 | Outpatient (BNV) | payer OTHER, SELFPAY | PROVIDERS: Emergency Provider Emergency Medicine; PCP Nurse Practitioner Community Health; Visit Provider Internal Medicine | DX: I25.2 Old myocardial infarction (principal) | CPT/HCPCS: 93010 ==

== ENCOUNTER → 2024-12-31 20:17 | Outpatient (BNV) | payer OTHER, SELFPAY | PROVIDERS: Emergency Provider Emergency Medicine; PCP Nurse Practitioner Community Health; Visit Provider Radiology Diagnostic Radiology | DX: R07.89 Other chest pain (principal) | CPT/HCPCS: 71046 ==